=== PATIENT | female | born 1945 | race Caucasian/White ===

== ENCOUNTER 2019-05-25 13:15 | Outpatient (CLI) | payer MEDICARE ==
[2019-05-25 14:40] LABS: ALANINE AMINOTRANSFERASE 26 U/L (12-78); ALBUMIN 3.5 g/dL (3.4-5.0); ANION GAP 7 mmol/L (5-15); CALCIUM 8.7 mg/dL (8.5-10.1); CHLORIDE 108 mmol/L (98-107); CREATININE 0.77 mg/dL (0.55-1.02)
[2019-05-25 14:43] LABS: ALKALINE PHOSPHATASE 110 U/L (45-117); BILIRUBIN,TOTAL 0.5 mg/dL (0.2-1.0); TOTAL PROTEIN 6.8 g/dL (6.4-8.2)
[2019-05-25] MEDS ORDERED: LISI-167 PO (15:00)
[2019-05-25] MEDS ORDERED: LATA2.5D3 EACHEYE (15:00)
== END 2019-05-25 23:59 | disposition home or self-care (01) ==
LOC: STAR 13:15
PROVIDERS: ATTEND Surgery
DX: Z01.818 Encounter for other preprocedural examination (principal)
CPT/HCPCS: 36415; 80053; 93005